=== PATIENT | male | born 1945 | race Caucasian/White ===

== ENCOUNTER 2023-02-20 02:04 | Observation (INO) | payer MEDICARE, OTHER ==
[~2023-02-20] VITALS: Ht 185.4 cm; Wt 116.1 kg
[2023-02-20] MEDS ORDERED: METF500 PO (05:06)
[2023-02-20] MEDS ORDERED: GLIM2 PO (05:08)
[2023-02-20] MEDS ORDERED: TAMS.4ER PO (05:09)
[2023-02-20] MEDS ORDERED: VALS80 PO (05:10)
[2023-02-20] MEDS ORDERED: ATEN25 PO (05:10)
[2023-02-20] MEDS ORDERED: FINA5 PO (05:11)
[2023-02-20] MEDS ORDERED: ALLO100 PO (05:12)
[2023-02-20] MEDS ORDERED: AMLO10 PO (05:12)
[2023-02-20] MEDS ORDERED: Aspir 8181 MG PO (05:13)
[2023-02-20] MEDS ORDERED: ZINC15 PO (05:13)
[2023-02-20] MEDS ORDERED: DERMACINRX FOL1 EAC2 PO (05:14)
[2023-02-20] MEDS ORDERED: Flonase 0.05% N16 GM (05:15)
[2023-02-20] MEDS ORDERED: Norco 10-325 T1 EACH PO (05:16)
[2023-02-20] MEDS ORDERED: GABA300 PO (05:17)
--- NOTE | 2023-02-20 06:05 | NUR ---
ADMISSION NOTES: PATIENT ARRIVES AT 0447 DIRECT ADMITT FROM [facility] FOR DX OF BILAT PE. PATIENT A&OX4. PLEASANT AND COOPERATIVE c CARE. DENIES CP/PRESSURE, SOB, N/V AND GENERALIZED PAIN. PATIENT ON 2L OF O2 c SPO2 OF 95%. LUNGS CLEAR T/O TO AUSCULTATION. DRY SCAR AND SCAB TO LOWER MID SPINE NOTED, PER PATIENT FROM LAMENECTOMY DONE BACK IN January. PIV TO L WRIST SALINE LOCKED AND PIV TO R FOREARM INFUSING HEPARIN AT THIS TIME. ADMISSION SCREENING, ASSESSMENT, AND MEDRIC DONE. ON TELE, SR HR IN THE HIGH 90'S BPM. CALL LIGHT IN REACH.
[2023-02-20 06:17] VITALS: BP 148/81
[2023-02-20 06:18] LABS: BASOPHILS ABSOLUTE AUTO 0.07 K/mm3 (0.00-0.23); BASOPHILS PERCENT AUTO 1 % (0-2); EOSINOPHILS ABSOLUTE AUTO 0.42 K/mm3 (0.00-0.68); EOSINOPHILS PERCENT AUTO 4 % (0-6); Hematocrit 35.2 % (37.0-53.0); Hemoglobin 11.6 g/dL (13.5-17.5); IMMATURE GRAN ABSOLUTE AUTO 0.08 K/mm3 (0.00-0.10); IMMATURE GRAN PERCENT AUTO 1 % (0-1); LYMPHOCYTES ABSOLUTE AUTO 1.93 K/mm3 (0.84-5.20); LYMPHOCYTES PERCENT AUTO 18 % (21-46); MONOCYTES ABSOLUTE AUTO 0.78 K/mm3 (0.16-1.47); MONOCYTES PERCENT AUTO 7 % (4-13); Mean Corpuscular HGB 30.7 pg (26.0-34.0); Mean Corpuscular Volume 93 fL (80-100); Mean Platelet Volume 8.9 fL (9.1-12.4); NEUTROPHILS ABSOLUTE AUTO 7.73 K/mm3 (1.96-9.15); NEUTROPHILS PERCENT AUTO 70 % (41-73); Platelet Count 244 K/mm3 (150-400); RDW Standard Deviation 44.1 fL (35.1-46.3); Red Blood Cell Count 3.78 M/mm3 (4.30-5.90); White Blood Cell Count 11.01 K/mm3 (4.00-11.30)
[2023-02-20 07:01] LABS: Anti-Xa UFH, PHA Monitoring 0.47 IU/mL; International Normalized Ratio 1.06; Prothrombin Time Results 11.1 Sec (9.7-11.5)
[2023-02-20 08:06] VITALS: BP 152/88
[2023-02-20 10:13] LABS: Albumin, Blood 2.6 g/dL (3.4-5.0); Albumin/Globulin Ratio 0.6 (0.8-1.8); Bilirubin, Total 0.2 mg/dL (0.1-1.0); Bun/Creatinine Ratio 12.1 (12.0-20.0); Calcium, Blood 8.8 mg/dL (8.5-10.1); Creatinine, Blood 1.4 mg/dL (0.60-1.20); Globulin, Blood 4.4 g/dL (2.2-4.0); Potassium, Blood 3.9 mmol/L (3.5-5.5)
[2023-02-20 15:42] VITALS: BP 158/83
--- NOTE | 2023-02-20 17:14 | NUR ---
PT IS A/OX4, PLEASANT AND COOPERATIVE. THE PT IS UP WITH MINIMAL ASSIST TO THE BATHROOM. PT IS SOB WITH ANY ACTIVITY. THE PT DENIED ANY C/P AT THIS TIME. THE PT IS ON O2 @ 2L/MIN AT REST. FAMILY WAS IN TO SEE THE PT TODAY. CALL LIGHT IN REACH. WILL CONTINUE TO MONITOR AND ASSESS FOR CHANGES
[2023-02-20 19:19] VITALS: BP 173/73
[2023-02-20 19:54] VITALS: BP 153/69
[2023-02-21 04:37] LABS: Hematocrit 30.7 % (37.0-53.0); Hemoglobin 10.3 g/dL (13.5-17.5); Mean Corpuscular HGB 30.8 pg (26.0-34.0); Mean Corpuscular HGB Conc 33.6 g/dL (31.5-36.5); Mean Corpuscular Volume 92 fL (80-100); Platelet Count 225 K/mm3 (150-400); RDW Standard Deviation 42.6 fL (35.1-46.3); Red Blood Cell Count 3.34 M/mm3 (4.30-5.90); White Blood Cell Count 11.35 K/mm3 (4.00-11.30)
--- NOTE | 2023-02-21 04:45 | NUR ---
SHIFT SUMMARY: NO NEW ACUTE CHANGES IN PATIENT CONDITION THIS SHIFT. DENIES CP/PRESSURE, N/V AND DIZZINESS. ON TELE, SR HR IN THE LOW TO MID 90'S BPM. PATIENT REPORTS SOB c AMBULATION. ON 2L OF O2 VIA NC c SPO2 RANGES 93-96% T/O SHIFT. PIV TO L WRIST SALINE LOCKED. PIV TO R FOREARM INFUSING HEPARIN AT 18 UNITS/KG/HR c NO CHANGES IN RATE PER PHARMACY. PATIENT HAD FORMED [employer] BM. RECEIVED SCHEDULED MEDS PER EMAR. VITAL SIGNS REVIEWED. CALL LIGHT IN REACH. PATIENT EDUCATED ON NON SMOKING POLICY, RISK OF INJURY, AND IGNITION SOURCES WHILE O2 IN USE. PATIENT DENIES SMOKING AND STATED UNDERSTANDING.
[2023-02-21 04:53] VITALS: BP 131/63
[2023-02-21 04:57] LABS: Albumin, Blood 2.4 g/dL (3.4-5.0); Albumin/Globulin Ratio 0.6 (0.8-1.8); Bilirubin, Total 0.2 mg/dL (0.1-1.0); Bun/Creatinine Ratio 13.8 (12.0-20.0); Calcium, Blood 8.5 mg/dL (8.5-10.1); Creatinine, Blood 1.52 mg/dL (0.60-1.20); Globulin, Blood 3.9 g/dL (2.2-4.0); Potassium, Blood 3.7 mmol/L (3.5-5.5); Total Protein, Blood 6.3 g/dL (6.4-8.2)
[2023-02-21 07:30] VITALS: BP 139/65
[2023-02-21] MEDS ORDERED: XARELTO20 MG PO ×2 (12:00→12:01)
--- NOTE | 2023-02-21 14:16 | NUR ---
PT DISCHARGED THE PT VERBALIZED UNDERSTANDING OF THE DC INSRUCTIONS. THE PTS PRESCIPTION WAS FAXED TO [facility] PER HIS REQUEST. THE PT WAS REMINDED TO FOLLOW UP WITH HIS PCP. OXYGEN WAS DELIVERED AND APPLIED AT DC. THE PT WAS TRANSFERED VIA WHEELCHAIR ACCOMPANIED BY THE TIP BANDER AND HIS FAMILY
== END 2023-02-21 13:28 | disposition home health service (06) ==
LOC: MEDS 02:04 → ENPENDDIS 02-21 10:42 → MEDS 02-21 13:28
PROVIDERS: Hospitalist; ADMIT Internal Medicine
DX: I26.99 Other pulmonary embolism without acute cor pulmonale (principal); I82.409 Acute embolism and thrombosis of unspecified deep veins of unspecified lower extremity; I10 Essential (primary) hypertension; E11.40 Type 2 diabetes mellitus with diabetic neuropathy, unspecified; R77.8 Other specified abnormalities of plasma proteins; Z79.82 Long term (current) use of aspirin
CPT/HCPCS: 36415; 80053; 82947; 85025; 85027; 85520; 85610; 85730; 93306; 93970; 94760; 94761; 96374; 96376; 97110; 97161; A9270; G0378; J1644